=== PATIENT | female | born 1950 | race Caucasian/White ===

== ENCOUNTER → 2018-03-25 | Outpatient (CLI) | payer MEDICARE, OTHER ==
[~2018-03-25] MED LIST: CELEXA40 MG PO; IBUPROFEN 800800 M1 PO; LOSARTAN-HCTZ1 EAC1 PO; PROTONIX40 M2 PO
== END ==
LOC: M.RAD 09:34
DX: Z12.31 Encounter for screening mammogram for malignant neoplasm of breast (principal); M81.0 Age-related osteoporosis without current pathological fracture

== ENCOUNTER → 2019-04-23 | Outpatient (CLI) | payer OTHER | LOC: M.RAD 08:44 | DX: Z12.31 Encounter for screening mammogram for malignant neoplasm of breast (principal) ==

== ENCOUNTER → 2020-06-17 | Outpatient (CLI) | payer OTHER | LOC: M.RAD 08:30 | PROVIDERS: ATTEND Family Medicine | DX: Z12.31 Encounter for screening mammogram for malignant neoplasm of breast (principal) ==

== ENCOUNTER → 2020-09-10 | Outpatient (CLI) | payer OTHER | LOC: M.RAD 15:19 | PROVIDERS: ATTEND Family Medicine | DX: M85.88 Other specified disorders of bone density and structure, other site (principal); N95.9 Unspecified menopausal and perimenopausal disorder ==

== ENCOUNTER → 2021-06-22 | Outpatient (CLI) | payer OTHER | LOC: M.RAD 09:31 | PROVIDERS: ATTEND Family Medicine | DX: Z12.31 Encounter for screening mammogram for malignant neoplasm of breast (principal) ==